=== PATIENT | male | born 1990 ===

== ENCOUNTER → 2020-08-09 10:36 | Outpatient (CLI) | payer BC, SELFPAY ==
[2020-08-09 20:38] LABS: SARS-CoV-2 RNA PCR Positive
== END ==
PROVIDERS: PCP Family Medicine; Visit Provider Emergency Medicine
DX: U07.1 COVID-19 (principal)
CPT/HCPCS: C9803; U0003; U0005

== ENCOUNTER 2020-08-24 09:01 | Outpatient (CLI) | payer BC, SELFPAY | END 2020-08-24 09:02 | disposition home or self-care (01) | LOC: ANHCOVIDVC 09:01 | PROVIDERS: PCP Family Medicine | DX: Z23 Encounter for immunization (principal) | CPT/HCPCS: 0001A; 91300 ==

== ENCOUNTER 2020-09-14 09:06 | Outpatient (CLI) | payer BC, SELFPAY | END 2020-09-14 09:07 | disposition home or self-care (01) | LOC: ANHCOVIDVC 09:06 | PROVIDERS: PCP Family Medicine | DX: Z23 Encounter for immunization (principal) | CPT/HCPCS: 0002A; 91300 ==

== ENCOUNTER 2021-11-06 09:30 | Emergency (ER) | payer BC, SELFPAY ==
[2021-11-06 09:43] VITALS: BP 129/77; PULSE 77; RESP 16; TEMP 36.5; O2SAT 99
--- NOTE | 2021-11-06 09:47 | ED.MALEGU ---
HPI - Male Genitourinary General Chief complaint: Urogenital-Male Stated complaint: fever Time Seen by Provider: 11/06/21 09:48 Source: patient Mode of arrival: ambulatory Limitations: no limitations History of Present Illness HPI Narrative: 31-year-old male presents with complaint of burning with urination, low-grade fever for 2 to 3 days. Reports nausea yesterday. States yesterday he had some low back pain but relates it to work. Does heavy lifting. Does report a family history of kidney stones but he has never had kidney stones himself. Patient is not concerned for STDs. He reports that he always wears a condom and has not been sexually active for 6 months. All systems reviewed and negative except as noted above. Related Data Allergies Allergy/AdvReac Type Severity Reaction Status Date / Time erythromycin base Allergy Unknown Unknown Verified 11/06/21 09:36 Review of Systems Review of Systems: CONSTITUTIONAL: Reports fever. Denies chills, or sweats. EYES: Denies visual changes, redness, or discharge. ENT: Denies rhinorrhea, congestion, sore throat, or otalgia. CARDIOVASCULAR: Denies chest pain, palpitations, or edema. RESPIRATORY: Denies cough or dyspnea. GASTROINTESTINAL: Denies abdominal pain, nausea, vomiting, or diarrhea. GENITOURINARY: Reports dysuria. Denies hematuria. SKIN: Denies rash or itching. MUSCULOSKELETAL: Denies back pain, joint pain, or myalgia. NEUROLOGIC: Denies headache, numbness, or weakness. PSYCHIATRIC: Denies anxiety or depression. All other systems reviewed are negative, except as documented in HPI. PMFSH Family History Family History Sibling Family history of bipolar disorder Social History Social History Smoking end date: 06/15/11 Alcohol intake: current Comments At time of signature, agree with nursing past medical, surgical, social and family history. There is no relevant family history pertinent to the presenting complaint. Exam Narrative: GENERAL: This is a well-nourished, well-developed patient, in no apparent distress. HEAD: normocephalic, atraumatic. EYES: PERRL. Sclera clear/white. Vision is grossly intact. EARS: External ears normal NOSE: External nose normal NECK: Neck supple, non-tender without lymphadenopathy, masses or thyromegaly. CARDIOVASCULAR: Regular rate and rhythm without murmurs, gallops, or rubs. RESPIRATORY: Clear to auscultation. Breath sounds equal bilaterally. No wheezes, rales, or rhonchi. SKIN: warm, Dry, intact with no suspicious lesions or rash, good texture and turgor. NEURO: awake, alert, and oriented to person, place and time. There were no obvious focal neurologic abnormalities. EXTREMITIES: Normal range of motion to all extremities. BACK: Nontender without deformity. No CVA tenderness. Course Course Level of Care: Express Care Visit Vital Signs Vital signs: Vital Signs Temperature 36.5 C 11/06/21 09:43 Pulse Rate 77 11/06/21 09:43 Respiratory Rate 16 11/06/21 09:43 Blood Pressure 129/77 11/06/21 09:43 Pulse Oximetry 99 11/06/21 09:43 Oxygen Delivery Room Air 11/06/21 09:43 Temperature 36.5 C 11/06/21 09:43 Pulse Rate 77 11/06/21 09:43 Respiratory Rate 16 11/06/21 09:43 Blood Pressure 129/77 11/06/21 09:43 Pulse Oximetry 99 11/06/21 09:43 Oxygen Delivery Room Air 11/06/21 09:43 Reviewed MDM - Male Genitourinary MDM Narrative Medical decision making narrative: Prescribe antibiotic today due to patient's symptoms. We will send a urine culture. Recommended STI testing patient was necessary. Offered KUB due to family history of kidney stone and patient's low back pain and patient refused. Patient is aware of diagnosis, understands and agrees to treatment plan. Anticipatory guidance given. Patient agrees to follow-up as directed and is aware of reasons to seek care at [facility]
== END 2021-11-06 10:07 | disposition home or self-care (01) ==
PROVIDERS: Emergency Provider Nurse Practitioner Family
DX: R30.0 Dysuria (principal); K21.9 Gastro-esophageal reflux disease without esophagitis; Z87.891 Personal history of nicotine dependence
CPT/HCPCS: 81003; 87086; 99213; G0463